=== PATIENT | male | born 1955 | race Caucasian/White ===

== ENCOUNTER 2024-03-22 02:33 | Emergency (ER) | payer BC, SELFPAY ==
[2024-03-22 02:37] VITALS: BP 160/83; PULSE 77; RESP 16; TEMP 36.8; O2SAT 97
--- NOTE | 2024-03-22 02:59 | ED.GENADUL_ITS ---
Discharge Plan Disposition Patient Disposition: Home Condition: Good Discharge Details Clinical Impression: Left elbow tendonitis Primary Care Provider: Unknown,Unknown ED Provider: Tarsha Newell Home Meds and New Rx's Prescriptions: Continued atorvastatin 20 mg tablet 20 mg PO DAILY Discharge Instructions Instructions: Elbow tendinopathy (tennis and golf elbow) Additional Instructions: Follow up with your primary care doctor within one week. A referral has been sent. Return to the emergency department for new or worsening symptoms including uncontrolled pain, numbness or weakness in your arm, or if you have any other concerns. HPI General Mode of arrival: ambulatory . Date/Time Provider Initiated Documentation: 03/22/24 02:35 . Limitations to Documentation: no limitations . Information obtained by: patient and family . HPI Narrative: 68yo previously healthy male presenting with left arm pain. Reports increased activity today, doing a lot of yard work, cutting down trees, clipping branches. Does not recall any injury or trauma. Around 1700 today after his work was completed he began to notice left forearm/elbow pain. Tried naproxen with minimal improvement. Pain has become worse over the course of the evening, now keeping him awake. Seems to radiate up to his bicep and down to his fingers. Feels better when held in flexion. Worse with moving. No numbness, tingling, or weakness. No shortness of breath or chest pain. Otherwise in his usual state of health. Related Data Home Medications ?Medication ?Instructions ?Recorded ?Confirmed atorvastatin 20 mg tablet 20 mg PO DAILY 03/22/24 03/22/24 Allergies Allergy/AdvReac Type Severity Reaction Status Date / Time Penicillins AdvReac Severe Hives Verified 03/22/24 02:41 General Stated Complaint: Orthopedic TRACEY: 4 Review of Systems Narrative: see HPI Exam Narrative Exam Narrative: General: Alert, well appearing, well nourished, in no acute distress. Head: Normocephalic, atraumatic Neck: Trachea midline, ?Neck supple. Cardiac: ?No cyanosis. Resp: No respiratory distress. Speaking in full sentences. Abd: ?Soft, non-distended, nontender : ?No suprapubic tenderness. No CVA tenderness. Extremities: ?No deformities.? No peripheral edema. 2+ symmetric radial pulses bilaterally LUE: Forearm tender to palpation just distal/anterior to medial epicondyle. No lateral tenderness. No warmth or erythema. No elbow effusion. No bony tenderness. Pain with active and passive pronation at elbow Neurologic: GCS 15. ? Sensation to light touch intact and symmetric BUE. 5/5 strength LUE elbow flexors/extensors, wrist flexors/extensors, finger abductors/adductors Course Vital Signs Vital signs: Vital Signs Temperature 36.8 C 03/22/24 02:37 Pulse 77 03/22/24 02:37 Respiratory Rate 16 03/22/24 02:37 Blood Pressure 160/83 H 03/22/24 02:37 Pulse Oximetry 97 03/22/24 02:37 Temperature 36.8 C 03/22/24 02:37 Temperature Source Oral 03/22/24 02:37 Pulse 77 03/22/24 02:37 Respiratory Rate 16 03/22/24 02:37 Respiratory Effort Normal, Non-Labored 03/22/24 02:45 Blood Pressure 160/83 H 03/22/24 02:37 Blood Pressure Position Sitting 03/22/24 02:37 Pulse Oximetry 97 03/22/24 02:37 Oxygen Delivery Method Room Air 03/22/24 02:37 Oxygen Flow Rate 0 03/22/24 02:37 Pain Level 5 03/22/24 02:41 Medical Decision Making 68yo previously healthy male presenting with left arm pain onset after yard work today, located around elbow into forearm, does also radiate up into bicep. Worse when moving arm. Keeping him awake. Slightly hypertensive on arrival, vital signs otherwise reassuring. Physical exam with clear reproducible tenderness near medial epicondyle and severe pain with resisted pronation at left elbow. History and exam consistent with tendinitis/overuse injury. Not concerning for acute coronary syndrome, aortic dissection, CVA, fracture, limb ischemia, etc; no indication for labs/EKG/imaging. Will treat symptomatically with tylenol, toradol, ice, compression; pain is improved by holding elbow in flexion and patient requested sling for comfort which was provided. Advised symptomatic treatment at home and PCP followup; pt moved to the area recently so PCP referals were sent. Advised to discuss his blood pressure with his PCP. Discharged home; discharge instructions and return precautions were reviewed with patient and who verbalized understanding. All questions were answered and they are in full agreement with the plan. Quality:SDOH Health Related Social Needs: No Data to Display PFSH All Active Problems (Updated 03/22/24 @ 03:04 by Tarsha Nweell MD) Left elbow tendonitis (Acute) Social History Smoking/Tobacco Use Status: Never Smoking risk assessment performed?: Yes Alcohol Intake: current Alcohol Intake frequency: a few times a week Alcohol type: hard liquor Drug use: Never Substance use type: does not use Housing: house Do you feel safe at home: Yes Do you feel safe in your relationship?: Yes
[2024-03-22] MEDS: Ketorolac 15 MG/ML VIAL IM (03:19)
[2024-03-22] MEDS: Acetaminophen 500 MG TAB 1000 MG PO (03:19)
--- NOTE | 2024-03-22 03:23 | NUR.NOTE ---
Referral to Care Management to establish primary care in a couple of weeks if possible. Tendinitis. Patient new to the area.Nursing Note:
== END 2024-03-22 03:28 | disposition home or self-care (01) ==
PROVIDERS: Emergency Provider Student in an Organized Health Care Education/Training Program
DX: M77.8 Other enthesopathies, not elsewhere classified (principal)
CPT/HCPCS: 96372; 99284; J1885

== ENCOUNTER 2024-06-22 01:29 | Outpatient (CLI) | payer BC, SELFPAY ==
--- NOTE | 2024-06-22 06:15 | DI.RAD_ITS ---
Exam(s) XR CHEST 2V PA LATERAL EXAM: XR CHEST 2V PA LATERAL CLINICAL HISTORY: chronic cough,R05.3 TECHNIQUE: 2D digital imaging was performed of the chest. Two images were obtained. PA and lateral views were obtained. COMPARISON: No exams were available for comparison FINDINGS: MEDIASTINUM: Normal. HEART: Normal. PULMONARY VASCULATURE: Normal. LUNGS: There is an infiltrate in the right middle lobe. The left lung is clear. PLEURAL SPACE: No pleural effusion or pneumothorax. BONE:Within normal limits for the patient's age. OTHER FINDINGS:Normal. IMPRESSION: Right middle lobe infiltrate which may represent atelectasis or pneumonia. Please correlate clinical ly. DATA REPOSITORY: RADIATION DOSE DELIVERED:
--- NOTE | 2024-06-22 07:55 | DI.VRAD_ITS ---
PROCEDURE INFORMATION: Exam: XR Chest Exam date and time: 06/22/2024 7:20 AM Age: 69 years old Clinical indication: Patient HX: Chronic cough TECHNIQUE: Imaging protocol: Radiologic exam of the chest. Views: 2 views. COMPARISON: No relevant prior studies available. FINDINGS: Lungs: Linear focus of consolidation at the right lung base , favor atelectasis but cannot exclude early infiltrate. Pleural spaces: Unremarkable. No pleural effusion. No pneumothorax. Heart/Mediastinum: Unremarkable. No cardiomegaly. Bones/joints: Unremarkable. IMPRESSION: Linear region of consolidation at the right lung base likely atelectasis but cannot exclude early infiltrate. Dictated and Authenticated by: Tarsha Franklin MD. Ordering:BASIL Cheung MD
== END 2024-06-22 01:49 ==
LOC: DI 01:29
PROVIDERS: PCP Nurse Practitioner Family; Visit Provider Nurse Practitioner Family
DX: R05.3 Chronic cough (principal)
CPT/HCPCS: 71046

== ENCOUNTER 2024-06-22 02:30 | Outpatient (CLI) | payer BC, SELFPAY ==
[2024-06-22 08:32] LABS: Anion Gap 4.5 mmol/L (3-11); BUN 18 mg/dL (7-18); CO2 30.5 mmol/L (21.0-32.0); CREATININE 1.2 mg/dL (0.70-1.30); Calcium 9.1 mg/dL (8.5-10.1); Calculated LDL 94 mg/dL (<100); Chloride 106 mmol/L (98-107); Cholesterol 161 mg/dL (<200); Estimated GFR 66.28 (mL/min/1.73m2); Glucose 100 mg/dL (74-106); HDL Cholesterol 48 mg/dL (40-60); Potassium 4.3 mmol/L (3.5-5.1); Sodium 141 mmol/L (136-145); Triglyceride 99 mg/dL (<150)
[2024-06-22 17:47] LABS: PSA, Screening 2.2 ng/mL (<=4.5)
== END 2024-06-22 02:31 | disposition home or self-care (01) ==
LOC: LBO 02:30
PROVIDERS: PCP Nurse Practitioner Family; Referring Provider Nurse Practitioner Family; Visit Provider Nurse Practitioner Family
DX: E78.5 Hyperlipidemia, unspecified (principal); R03.0 Elevated blood-pressure reading, without diagnosis of hypertension; Z12.5 Encounter for screening for malignant neoplasm of prostate
CPT/HCPCS: 36415; 80048; 80061; 84153

== ENCOUNTER 2024-07-24 09:45 | Outpatient (CLI) | payer BC, SELFPAY ==
--- NOTE | 2024-07-24 09:45 | RT.EKG_ITS ---
APPROVED REPORT Exam: Resting ECG Reason for Exam: Elevated BP Patient Location: O HR:66 bpm ECG Measurements Heart Rate 66 AXIS TX 152 P 21 QRSd 98 QRS 18 QT 409 T 38 QTc 429 Conclusion Sinus rhythm...normal P axis, V-rate 50- 99 Normal Electrocardiogram
== END 2024-07-24 09:46 | disposition home or self-care (01) ==
LOC: DI.KIM 09:46
PROVIDERS: PCP Nurse Practitioner Family; Visit Provider Nurse Practitioner Family
DX: R03.0 Elevated blood-pressure reading, without diagnosis of hypertension (principal)
CPT/HCPCS: 93010

== ENCOUNTER 2024-10-09 02:15 | Outpatient (CLI) | payer BC, SELFPAY ==
[2024-10-09] MEDS: Inhaler, Assist Device 1 EACH MC (16:51)
[2024-10-09] MEDS: Methacholine 100 MG VIAL IH (16:51)
[2024-10-09] MEDS: Albuterol HFA 18 GM 200 PUFF INH IH (16:52)
--- NOTE | 2024-10-11 16:24 | PFT_ITS ---
Date of service: 10/09/24 Time of Service: 14:52 Pulmonary Function Test Result Indications: Chronic cough Interpretation Spirometry: No baseline airflow limitation. There was a 20% decrease in FEV1 with administr ation of 2.0mg/mL methacholine. Lung Volumes: Likely normal lung volumes Diffusion Capacity: Normal diffusion Airway Pressure: Normal airways resistance Impression Normal baseline pulmonary function with a positive methacholine challenge. Clinical Correlation therefore is recommended.
== END 2024-10-09 02:16 | disposition home or self-care (01) ==
LOC: RT 02:15
PROVIDERS: PCP Nurse Practitioner Family; Visit Provider Student in an Organized Health Care Education/Training Program
DX: R05.3 Chronic cough (principal)
CPT/HCPCS: 94060; 94070; 94726; 94729; J7674